=== PATIENT | male | born 2000 | race Caucasian/White ===

== ENCOUNTER 2022-05-20 14:57 | Observation (INO) ==
[2022-05-20] MEDS ORDERED: ONDANSETRON INJ 2 MG/ML 2 ML VIAL IV STA ×2 (15:03→17:39)
[2022-05-20] MEDS ORDERED: PROMETHAZINE 6.25 MG/50.25 ML BAG IV STA (15:31)
[2022-05-20] MEDS ORDERED: SODIUM CHLORIDE 0.9% 1000ML 1,000 ML IV ONE (15:31)
[2022-05-20] MEDS ORDERED: FAMOTIDINE 20MG IV PUSH 20 MG/5 ML SYR IV STA (15:40)
[2022-05-20] MEDS ORDERED: ACETAMINOPHEN 1,000 MG/100 ML VIAL IV STA (15:40)
[2022-05-20] MEDS ORDERED: LACTATED RINGER'S 1,000 ML IV ONE (15:40)
[2022-05-20 15:43] LABS: Basophils # (auto) 0.03 K/uL (0-0.2); Basophils % (auto) 0.3 %; Hematocrit (blood only) 46.4 % (40.1-51.0); Hemoglobin 17.3 g/dl (14.0-18.0); Immature Granulocytes # (auto) 0.03 K/uL (0.00-0.02); Immature Granulocytes % (auto) 0.3 %; Lymphocytes # (auto) 2.03 K/uL (1.2-3.4); Lymphocytes % (auto) 19.1 %; Mean Corpuscular Hemoglobin 30.6 pg (25.0-34.0); Mean Corpuscular Hgb Conc 37.3 g/dL (32.0-36.0); Mean Platelet Volume 9.9 fL (9.4-12.4); Monocytes # (auto) 0.73 K/uL (0.24-0.82); Monocytes % (auto) 6.9 %; Neutrophils # (auto) 7.83 K/uL (1.4-6.5); Neutrophils % (auto) 73.4 %; Platelet Count 326 K/uL (130-400); RDW Coefficient of Variation 11.7 % (11.5-14.5); RDW Standard Deviation 34.5 fL (36.4-46.3); Red Blood Count 5.66 M/uL (4.63-6.08); White Blood Count 10.65 K/ul (4.8-10.8)
--- NOTE | 2022-05-20 15:46 | Emergency Department Note ---
Impression & Plan Acute dehydration, Vomiting, Diffuse abdominal pain, Cannabinoid hyperemesis syndrome ED Provider Note NAME: VARINDER QUINTERO AGE: 21 SEX: M : 2000 ARRIVES VIA: Walk-In INFORMANT: [Patient] ED PROVIDER(S): [Mark Lr MD] CHIEF COMPLAINT: Vomiting HISTORY OF PRESENT ILLNESS: The patient is a 21-year-old male who states that he has had 3 to 4 days of nausea and vomiting. This all started the morning after he quit smoking marijuana. He has been smoking marijuana heavily for the last few months. He has a history of cannabinoid hyperemesis syndrome diagnosed about a year ago, he was doing well and staying away from marijuana up until a few months ago. He is feeling similar to how he felt previously and believes he has the same syndrome again. He does not use any other drugs. He has not had diarrhea. He has had decreased urine output and persistent retching and nausea and vomiting. No fever, no cough or congestion. No sick contacts, no bad food eaten. REVIEW OF SYSTEMS: See HPI for pertinent positives and negatives. A total of ten systems were reviewed and were otherwise negative. PMHx/PSHx: See Below SOCIAL HISTORY: See Below. PHYSICAL EXAM: GENERAL: Patient is in no acute distress. HEENT: No acute trauma, normocephalic atraumatic, mucous membranes moist, no nasal congestion, no scleral icterus. NECK: No stridor, no adenopathy, no meningismus, trachea is midline. LUNGS: Clear to auscultation bilaterally, no wheeze, no rhonchi, breath sounds equal. HEART: Without murmurs gallops or rubs, regular rate and rhythm. ABDOMEN: Soft, mildly diffusely tender, no rebound, no peritonitis EXTREMITIES: No cyanosis or edema, full range of motion of all the joints without pain or difficulty, no signs for acute trauma. NEUROLOGIC: Oriented x 3, no acute motor or sensory deficits, no focal weakness. SKIN: No rash, no jaundice, no diaphoresis. DIFFERENTIAL DIAGNOSIS: Cannabinoid hyperemesis syndrome, dehydration, bowel obstruction, foodborne or viral illness, electrolyte balance, anemia, among others. EMERGENCY DEPARTMENT COURSE/PROCEDURES: MEDICAL DECISION MAKING: There is no leukocytosis or concerning anemia. There is a normal platelet count. Potassium was low at 3.2, likely from all the vomiting. CO2 was low, there was a anion gap of 20. I suspect his electrolyte abnormalities are all from dehydration. Bilirubin was elevated at 3.6, the remaining liver enzymes were unremarkable. Lipase was normal. Urinalysis showed 4+ ketones, no infection. COVID test returned negative. Abdominal series did not show bowel obstruction, pneumonia or free air. On exam, the patient was not toxic. He did not have peritonitis. He was not febrile. Patient received IV Tylenol, IV Pepcid, IV lactated Ringer's. He received IV Zofran and IV Phenergan. He received a second dose of IV Zofran as well as a second dose of IV Phenergan. He was given IV potassium. The patient is still complaining of nausea. I think he would benefit from a hospital stay, further IV hydration, further symptom control. I spoke with the patient and vocational case manager, I talked to the on-call hospitalist. The patient does appear to be suffering from cannabinoid hyperemesis syndrome. Past Med/Surg History Medical History Cannabis use disorder Family History Other Coronary heart disease Social History Smoking Status: Never smoker Second Hand Exposure: No; Do You Dip or Chew Tobacco: No; Hx Alcohol Use: No Hx Substance Use: Yes Last Used Substance: Days (ago) Last Used Substance Other:: 2 days ago Preferred Language: Bangladeshi Communication Ability: Effective Van Driver Required: No Beliefs That Will Affect Care: None Current Living Situation: Alone Current Living Situation Comment: [employer] student lives in apartment with friends current occupational status: student Other Information That Helps Us Care for You: No Feels Safe at Home: Yes Safety Concerns: Feels Safe At This Time Assistive Devices: None Allergies Allergies Allergy/AdvReac Type Severity Reaction Status Date / Time penicillin G Allergy Mild Hives Verified 05/20/22 19:17 Home Meds Home Medications Medication Instructions Recorded Confirmed acetaminophen 500 mg tablet 1,000 mg PO QID PRN Pain 05/20/22 05/20/22 (Tylenol Extra Strength) cholecalciferol (vitamin D3) 25 25 mcg PO .2-3XSWEEK 05/20/22 05/20/22 mcg (1,000 unit) tablet (Vitamin D3) ondansetron HCl 4 mg tablet 4 mg PO Q8 PRN nausea & vomiting 05/20/22 05/20/22 Results & Data (ED) Vital Signs Vital Signs - 24 hr 05/20/22 15:00 05/20/22 15:58 05/20/22 17:00 Temperature 36.7 C Temperature Source Temporal Artery Scan Pulse Rate 111 H Pulse Rate [Finger] 89 112 H Respiratory Rate 20 20 18 Respiratory Effort / Characteristics Respiratory Depth Blood Pressure 142/100 H Blood Pressure [Right Arm] 124/93 118/54 L Blood Pressure Mean 114 Blood Pressure Mean [Right Arm] 103 75 Blood Pressure Position Sitting Blood Pressure Position [Right Arm] Pulse Oximetry 95 96 98 Oxygen Delivery Method Room Air Sepsis Recent Fever Within 48 Hours No Sepsis New/Unexplained Change in Mental Status No Sepsis Action Taken by Nursing No Action Required 05/20/22 19:32 Temperature Temperature Source Pulse Rate Pulse Rate [Finger] 86 Respiratory Rate Respiratory Effort / Characteristics Non-Labored Spontaneous Respiratory Depth Normal Blood Pressure Blood Pressure [Right Arm] 100/63 Blood Pressure Mean Blood Pressure Mean [Right Arm] 75 Blood Pressure Position Blood Pressure Position [Right Arm] Lying Pulse Oximetry 97 Oxygen Delivery Method Room Air Sepsis Recent Fever Within 48 Hours Sepsis New/Unexplained Change in Mental Status Sepsis Action Taken by Detention Medications Current Medication List: was personally reviewed by me Laboratory Data Attestation: I reviewed the patient's lab results. Result diagrams: 05/20/22 15:10 05/20/22 15:10 Lab Results 05/20/22 05/20/22 05/20/22 Range/Units 15:10 15:10 18:44 WBC 10.65 (4.8-10.8) K/ul RBC 5.66 (4.63-6.08) M/uL Hgb 17.3 (14.0-18.0) g/dl Hct 46.4 (40.1-51.0) % MCV 82.0 (80.0-100.0) fL MCH 30.6 (25.0-34.0) pg MCHC 37.3 H (32.0-36.0) g/dL RDW Std Deviation 34.5 L (36.4-46.3) fL RDW Coeff of Hallie 11.7 (11.5-14.5) % Plt Count 326 (130-400) K/uL MPV 9.9 (9.4-12.4) fL Immature Gran % (Auto) 0.3 % Neut % (Auto) 73.4 % Lymph % (Auto) 19.1 % [place] % (Auto) 6.9 % Eos % (Auto) 0.0 % Baso % (Auto) 0.3 % Neut # (Auto) 7.83 H (1.4-6.5) K/uL Lymph # (Auto) 2.03 (1.2-3.4) K/uL [place] # (Auto) 0.73 (0.24-0.82) K/uL Eos # (Auto) 0.00 (0-0.50) K/uL Baso # (Auto) 0.03 (0-0.2) K/uL Immature Gran # (Auto) 0.03 H (0.00-0.02) K/uL Sodium 136 (136-145) mmol/L Potassium 3.2 L (3.5-5.1) mmol/L Chloride 101 (98-107) mmol/L Carbon Dioxide 15 L (21-32) mmol/L Anion Gap 20 H (3-11) BUN 12 (6-23) mg/dl Creatinine 0.92 (0.6-1.4) mg/dl Est Cr Clr Drug Dosing 113.6 ml/min Est GFR ( Amer) 138.3 ml/min Est GFR (Non-Af Amer) 119.3 ml/min BUN/Creatinine Ratio 13.0 (10-20) Glucose 120 H (70-99(Fasting)) mg/dl Calcium 10.3 H (8.5-10.1) mg/dl Magnesium 1.7 (1.7-2.4) mg/dl Total Bilirubin 3.6 H (0.2-1.0) mg/dl AST 25 (13-39) U/L ALT 45 (7-52) U/L Alkaline Phosphatase 67 (34-104) U/L Total Protein 8.5 H (6.0-8.3) gm/dl Albumin 5.4 H (3.4-5.0) gm/dl Globulin 3.1 (2.5-4.0) gm/dl Albumin/Globulin Ratio 1.7 (0.9-2) Lipase 18 (11-82) U/L Urine Color Yellow Urine Appearance Clear (Clear) Urine pH 5.5 (4.5-7.5) Ur Specific [place] 1.024 (1.000-1.030) Urine Protein Trace H (Negative) Urine Glucose (UA) Negative (Negative) Urine Ketones 4+ H (Negative) Urine Blood Negative (Negative) Urine Nitrite Negative (Negative) Urine Bilirubin Negative (Negative) Urine Urobilinogen Negative (Negative) Ur Leukocyte Esterase Negative (Negative) Urine WBC (Auto) 1-5 (0-5) /hpf Urine RBC (Auto) 0-4 (0-4) /hpf U Hyaline Cast (Auto) 1-5 (0-5) /lpf U Epithel Cells (Auto) 5-10 H (0-5) /lpf Urine Bacteria (Auto) Negative (Negative) SARS-CoV-2, RNA, NAAT (NEGATIVE) 05/20/22 Range/Units 18:44 WBC (4.8-10.8) K/ul RBC (4.63-6.08) M/uL Hgb (14.0-18.0) g/dl Hct (40.1-51.0) % MCV (80.0-100.0) fL MCH (25.0-34.0) pg MCHC (32.0-36.0) g/dL RDW Std Deviation (36.4-46.3) fL RDW Coeff of Hallie (11.5-14.5) % Plt Count (130-400) K/uL MPV (9.4-12.4) fL Immature Gran % (Auto) % Neut % (Auto) % Lymph % (Auto) % [place] % (Auto) % Eos % (Auto) % Baso % (Auto) % Neut # (Auto) (1.4-6.5) K/uL Lymph # (Auto) (1.2-3.4) K/uL [place] # (Auto) (0.24-0.82) K/uL Eos # (Auto) (0-0.50) K/uL Baso # (Auto) (0-0.2) K/uL Immature Gran # (Auto) (0.00-0.02) K/uL Sodium (136-145) mmol/L Potassium (3.5-5.1) mmol/L Chloride (98-107) mmol/L Carbon Dioxide (21-32) mmol/L Anion Gap (3-11) BUN (6-23) mg/dl Creatinine (0.6-1.4) mg/dl Est Cr Clr Drug Dosing ml/min Est GFR ( Amer) ml/min Est GFR (Non-Af Amer) ml/min BUN/Creatinine Ratio (10-20) Glucose (70-99(Fasting)) mg/dl Calcium (8.5-10.1) mg/dl Magnesium (1.7-2.4) mg/dl Total Bilirubin (0.2-1.0) mg/dl AST (13-39) U/L ALT (7-52) U/L Alkaline Phosphatase (34-104) U/L Total Protein (6.0-8.3) gm/dl Albumin (3.4-5.0) gm/dl Globulin (2.5-4.0) gm/dl Albumin/Globulin Ratio (0.9-2) Lipase (11-82) U/L Urine Color Urine Appearance (Clear) Urine pH (4.5-7.5) Ur Specific [place] (1.000-1.030) Urine Protein (Negative) Urine Glucose (UA) (Negative) Urine Ketones (Negative) Urine Blood (Negative) Urine Nitrite (Negative) Urine Bilirubin (Negative) Urine Urobilinogen (Negative) Ur Leukocyte Esterase (Negative) Urine WBC (Auto) (0-5) /hpf Urine RBC (Auto) (0-4) /hpf U Hyaline Cast (Auto) (0-5) /lpf U Epithel Cells (Auto) (0-5) /lpf Urine Bacteria (Auto) (Negative) SARS-CoV-2, RNA, NAAT NEGATIVE (NEGATIVE) Administered Medications Discontinued Medications Promethazine HCl (Phenergan) 6.25 mg in 50.25 mls @ 201 mls/hr IV NOW STA Stop: 05/20/22 15:45 Last Infusion: 05/20/22 15:54 Dose: 0 mls/hr Documented By: Admin: 05/20/22 15:43 Dose: 201 mls/hr Documented By: GRIS Sodium Chloride (Nss 1000ml) 1,000 mls @ 999 mls/hr IV .Q1H1M ONE Stop: 05/20/22 16:31 Last Infusion: 05/20/22 16:48 Dose: 0 mls/hr Documented By: Admin: 05/20/22 15:43 Dose: 999 mls/hr Documented By: GRIS Acetaminophen (Ofirmev) 1,000 mg in 100 mls @ 400 mls/hr IV NOW STA Stop: 05/20/22 15:54 Last Infusion: 05/20/22 16:48 Dose: 0 mls/hr Documented By: Admin: 05/20/22 15:54 Dose: 400 mls/hr Documented By: GRIS Famotidine (Pepcid 20mg Iv Push) 20 mg in 5 mls @ 2.5 mls/min IV NOW STA Stop: 05/20/22 15:41 Last Admin: 05/20/22 15:54 Dose: 2.5 mls/min Documented By: GRIS Lactated Ringer's (Lr) 1,000 mls @ 999 mls/hr IV .Q1H1M ONE Stop: 05/20/22 16:40 Last Infusion: 05/20/22 18:49 Dose: 0 mls/hr Documented By: Admin: 05/20/22 17:17 Dose: 999 mls/hr Documented By: GRIS Potassium Chloride (K Bony / Wtr) 10 meq in 100 mls @ 100 mls/hr IV ONE ONE; Protocol Stop: 05/20/22 17:22 Last Infusion: 05/20/22 18:49 Dose: 0 mls/hr Documented By: Admin: 05/20/22 17:17 Dose: 100 mls/hr Documented By: GRIS Promethazine HCl (Phenergan) 12.5 mg in 50.5 mls @ 202 mls/hr IV NOW STA Stop: 05/20/22 17:53 Last Infusion: 05/20/22 18:23 Dose: 0 mls/hr Documented By: Admin: 05/20/22 17:51 Dose: 202 mls/hr Documented By: GRIS Ondansetron HCl (Ondansetron Inj 2 Mg/Ml 2 Ml Vial) 4 mg IV NOW STA Stop: 05/20/22 15:04 Last Admin: 05/20/22 15:13 Dose: 4 mg Documented By: SALVADOR Ondansetron HCl (Ondansetron Inj 2 Mg/Ml 2 Ml Vial) 4 mg IV NOW STA Stop: 05/20/22 17:40 Last Admin: 05/20/22 17:50 Dose: 4 mg Documented By: AY Imaging Data Radiologist's Impression: Chest/Abdomen X-ray 05/20/22 15:40 CHEST AND ABDOMEN 2 VIEWS HISTORY: Nausea. Vomiting. COMPARISON: None. FINDINGS: The lungs are clear. The cardiomediastinal silhouette is within normal limits. There is no pneumoperitoneum or pneumatosis. The bowel gas pattern is unremarkable. No evidence for bowel obstruction. No pathologic calcifications. IMPRESSION: No acute cardiopulmonary process. No evidence for bowel obstruction. ACT 112: Negative or not required by law. Electronically signed by: Abdifatah Jay M.D. 05/20/2022 5:09 PM Discharge Plan Visit Data Chief Complaint: Vomiting Stated Complaint: VOMITING ED Provider: Mark Lr Discharge Problem: Acute dehydration, Vomiting, Diffuse abdominal pain, Cannabinoid hyperemesis syndrome Patient Disposition: Admitted As Inpatient Condition: Fair Forms Stand Alone Forms: [facility] Prescriptions Prescriptions: No Action ondansetron HCl 4 mg tablet 4 mg PO Q8 PRN (Reason: nausea & vomiting) acetaminophen [Tylenol Extra Strength] 500 mg Tablet 1,000 mg PO QID PRN (Reason: Pain) cholecalciferol (vitamin D3) [Vitamin D3] 25 mcg (1,000 unit) Tablet 25 mcg PO .2-3XSWEEK Referrals Referrals: PCP,NO [Primary Care Provider] -
[2022-05-20 16:10] LABS: Albumin Globulin Ratio 1.7 (0.9-2); Albumin Level 5.4 gm/dl (3.4-5.0); Bilirubin,Total 3.6 mg/dl (0.2-1.0); Calcium 10.3 mg/dl (8.5-10.1); Creatinine Clr Calc Pharmacy 113.6 ml/min; Est GFR (African American) 138.3 ml/min; Est GFR (Non-African American) 119.3 ml/min; Globulin 3.1 gm/dl (2.5-4.0); Magnesium 1.7 mg/dl (1.7-2.4); Potassium 3.2 mmol/L (3.5-5.1); Total Protein 8.5 gm/dl (6.0-8.3)
[2022-05-20] MEDS ORDERED: POTASSIUM CHLORIDE / WTR 10 MEQ/100 ML PLCT IV ONE (16:23)
--- NOTE | 2022-05-20 17:11 | XRay Report ---
CHEST AND ABDOMEN 2 VIEWS HISTORY: Nausea. Vomiting. COMPARISON: None. FINDINGS: The lungs are clear. The cardiomediastinal silhouette is within normal limits. There is no pneumoperitoneum or pneumatosis. The bowel gas pattern is unremarkable. No evidence for b owel obstruction. No pathologic calcifications. IMPRESSION: No acute cardiopulmonary process. No evidence for bowel obstruction. ACT 112: Negative or not required by law. Electronically signed by: Abdifatah Jay M.D. 05/20/2022 5:09 PM
[2022-05-20] MEDS ORDERED: PROMETHAZINE 12.5 MG/50.5 ML BAG IV STA (17:39)
[2022-05-20 18:56] LABS: Appearance Urine Clear (Clear); Bacteria Urine Automated Negative (Negative); Bilirubin Urine Negative (Negative); Blood Urine Negative (Negative); Color Urine Yellow; Glucose Urine UA Negative (Negative); Ketones Urine 4+ (Negative); Leukocyte Esterase Urine Negative (Negative); Nitrite Urine Negative (Negative); Protein Urine Trace (Negative); RBC Urine Automated 0-4 /hpf (0-4); Specific Gravity Urine 1.024 (1.000-1.030); Urobilinogen Urine Negative (Negative); pH Urine 5.5 (4.5-7.5)
--- NOTE | 2022-05-20 19:41 | History & Physical Report ---
Date of Service May 20, 2022 Assessment & Plan (1) Nausea & vomiting: (2) Cannabis hyperemesis syndrome concurrent with and due to cannabis abuse: (3) Hypokalemia: (4) Epigastric abdominal pain: Plan Severe nausea and vomiting with epigastric pain: -likely 2/2 Cannabis hyperemesis syndrome -pt appeared well -IV Zofran prn for nausea -since pt noticed blood in the vomit + hx of gastritis will do protonix 40mg IV BID --- discharge on oral Protonix --- clear liquid diet and advance as he tolerate --- maintenance IVF fluid: 100 cc/hr --- trend CBC -T bili is elevated but not suspecting gallbladder pathology ---- repeat CMP ---- if abd pain worse then consider CT abd -Chest/abd xray: unremarkable -HypoK+: repleted ---- trend BMP Diet: Clear liquid diet DVT PPx: SCD Code Status: FULL CODE Emergency Contact: MotherJessica [phone] History of Present Illness Chief Complaint: n/v Primary Care Provider: NO PCP Pt is a 21 y/o M with prior hx of gastritis from Cannabis hyperemesis syndrome and heavy cannabis use came into the ER with severe N/V for 1 day. Per pt he uses eighth of cannabis (3.5 grams) daily. He was trying to quit therefore stop using it yesterday & the symptoms started right after. Does have prior hx of Cannabis hyperemesis syndrome which required EGD (showed gastritis) 1 year ago He denied other drug use or hx of GI bleed but did see some bright red blood on the vomit today morning. Allergies Allergy/AdvReac Type Severity Reaction Status Date / Time penicillin G Allergy Mild Hives Verified 05/20/22 19:17 Past Med/Surg History Medical History Cannabis use disorder Family History Other Coronary heart disease Social History Smoking Status: Never smoker Second Hand Exposure: No; Do You Dip or Chew Tobacco: No; Hx Alcohol Use: No Hx Substance Use: Yes Last Used Substance: Days (ago) Last Used Substance Other:: 2 days ago Preferred Language: Mongolian Communication Ability: Effective Broach Grinder Required: No Beliefs That Will Affect Care: None Current Living Situation: Alone Current Living Situation Comment: [employer] student lives in apartment with friends current occupational status: student Other Information That Helps Us Care for You: No Feels Safe at Home: Yes Safety Concerns: Feels Safe At This Time Assistive Devices: None Review of Systems Review of Systems: At least 10 Review of systems were reviewed and all negative except as indicated in HPI Physical Exam Physical Exam: General:. NAD, well developed, well nourished, average body habitus HEENT:. Normocephalic and atraumatic, Normal Conjunctiva, EOMI, Sclera is non- icteric Lungs:. No signs of respiratory distress, CTA, no wheezing or crackles Heart:. Normal S1, S2, no murmur Abdominal:.mild discomfort to palpation of the epigastric area, ND, Soft, normal BS MSK:. No deformities of UE and LE, No leg edema Skin:. no rash or open wound Psych:. AAOx3, normal affect Results & Data Results & Data ([facility]) Vital Signs (Past 12 Hours) Vital Signs Temp Pulse Pulse Resp BP BP Pulse Ox 05/20/22 17:00 112 H 18 118/54 L 98 05/20/22 15:58 89 20 124/93 96 05/20/22 15:00 36.7 C 111 H 20 142/100 H 95 O2 Del Method 05/20/22 17:00 05/20/22 15:58 05/20/22 15:00 Room Air Laboratory Results Short CBC 05/20/22 Range/Units 15:10 WBC 10.65 (4.8-10.8) K/ul Hgb 17.3 (14.0-18.0) g/dl Hct 46.4 (40.1-51.0) % Plt Count 326 (130-400) K/uL BMP 05/20/22 15:10 Sodium 136 Potassium 3.2 L Chloride 101 Carbon Dioxide 15 L BUN 12 Creatinine 0.92 Glucose 120 H Calcium 10.3 H Liver Function 05/20/22 Range/Units 15:10 Total Bilirubin 3.6 H (0.2-1.0) mg/dl AST 25 (13-39) U/L ALT 45 (7-52) U/L Alkaline Phosphatase 67 (34-104) U/L Albumin 5.4 H (3.4-5.0) gm/dl Urine 05/20/22 Range/Units 18:44 Urine Color Yellow Urine Appearance Clear (Clear) Urine pH 5.5 (4.5-7.5) Ur Specific [place] 1.024 (1.000-1.030) Urine Protein Trace H (Negative) Urine Glucose (UA) Negative (Negative) Diagnostic Findings Chest/Abdomen X-ray 05/20/22 15:40 CHEST AND ABDOMEN 2 VIEWS HISTORY: Nausea. Vomiting. COMPARISON: None. FINDINGS: The lungs are clear. The cardiomediastinal silhouette is within normal limits. There is no pneumoperitoneum or pneumatosis. The bowel gas pattern is unremarkable. No evidence for bowel obstruction. No pathologic calcifications. IMPRESSION: No acute cardiopulmonary process. No evidence for bowel obstruction. ACT 112: Negative or not required by law. Electronically signed by: Abdifatah Jay M.D. 05/20/2022 5:09 PM Code Status & VTE Plan VTE Prophylaxis Plan VTE Prophylaxis will be ordered: Yes
[2022-05-20] MEDS: SODIUM CHLORIDE 0.9% 1000ML 1,000 ML IV SCH (21:46)
[2022-05-20] MEDS: PANTOprazole 40 MG in SYRINGE 0 ML IV SCH (21:46)
[2022-05-21 07:08] LABS: Albumin Globulin Ratio 1.8 (0.9-2); Albumin Level 4.2 gm/dl (3.4-5.0); BUN Creatinine Ratio 12.9 (10-20); Bilirubin,Total 2.8 mg/dl (0.2-1.0); Calcium 8.7 mg/dl (8.5-10.1); Creatinine Clr Calc Pharmacy 130.8 ml/min; Est GFR (African American) 136.5 ml/min; Est GFR (Non-African American) 117.8 ml/min; Globulin 2.3 gm/dl (2.5-4.0); Magnesium 1.8 mg/dl (1.7-2.4); Potassium 3.3 mmol/L (3.5-5.1); Total Protein 6.5 gm/dl (6.0-8.3)
[2022-05-21 07:09] LABS: Basophils # (auto) 0.04 K/uL (0-0.2); Basophils % (auto) 0.6 %; Eosinophils # (auto) 0.07 K/uL (0-0.50); Immature Granulocytes # (auto) 0.02 K/uL (0.00-0.02); Immature Granulocytes % (auto) 0.3 %; Lymphocytes # (auto) 2.09 K/uL (1.2-3.4); Lymphocytes % (auto) 28.8 %; Mean Corpuscular Hemoglobin 30.6 pg (25.0-34.0); Mean Corpuscular Hgb Conc 35.9 g/dL (32.0-36.0); Mean Corpuscular Volume 85.3 fL (80.0-100.0); Monocytes # (auto) 0.75 K/uL (0.24-0.82); Monocytes % (auto) 10.3 %; Neutrophils # (auto) 4.29 K/uL (1.4-6.5); Platelet Count 208 K/uL (130-400); RDW Coefficient of Variation 12.2 % (11.5-14.5); RDW Standard Deviation 37.2 fL (36.4-46.3); Red Blood Count 4.57 M/uL (4.63-6.08); White Blood Count 7.26 K/ul (4.8-10.8)
[2022-05-21] MEDS: PANTOprazole 40 MG in SYRINGE 0 ML IV SCH ×2 (07:13→20:42)
[2022-05-21] MEDS: SODIUM CHLORIDE 0.9% 1000ML 1,000 ML IV SCH ×2 (07:13→17:32)
--- NOTE | 2022-05-21 07:59 | Hospitalist Progress Note ---
Date of Service May 21, 2022 Assessment & Plan (1) Nausea & vomiting: (2) Cannabis hyperemesis syndrome concurrent with and due to cannabis abuse: (3) Hypokalemia: (4) Epigastric abdominal pain: Plan Severe nausea and vomiting with epigastric pain: -likely 2/2 Cannabis hyperemesis syndrome -pt appeared well -IV Zofran prn for nausea -since pt noticed blood in the vomit + hx of gastritis, started on protonix 40mg IV BID --- discharge on oral Protonix --- clear liquid diet initially, will advance now --- maintenance IVF fluid: 100 cc/hr --- trend CBC -T bili is elevated but not suspecting gallbladder pathology ---- repeat CMP - decreased 3.6 -> 2.8 ---- if abd pain worse then consider CT abd -Chest/abd xray: unremarkable -HypoK+: replete and monitor ---- trend BMP Diet: advance as tolerated DVT PPx: SCD Code Status: FULL CODE Emergency Contact: Larisa [phone] Admission and Anticipated Discharge Date Admission Date: May 20, 2022 Subjective Pt seen in follow up of n/v Denies any emesis today Feeling better overall No fever, chills, chest pain, shortness of breath, abd. pain, diarrhea or constipation Will advance diet Review of Systems Review of Systems: All systems reviewed & are unremarkable except as noted in Subjective Physical Exam Physical Exam: General:.NAD, well developed, well nourished, average body habitus HEENT:.Normocephalic and atraumatic, Normal Conjunctiva, EOMI, Sclera is non- icteric Lungs:.No signs of respiratory distress, CTA, no wheezing or crackles Heart:.Normal S1, S2, no murmur Abdominal: minimal discomfort to palpation of the epigastric area,ND, Soft, normal BS MSK:.No deformities of UE and LE, No leg edema Skin:.no rash or open wound Psych:.AAOx3, normal affect Results & Data Results & Data ([facility]) Vital Signs (Past 12 Hours) Vital Signs Temp Pulse Pulse Resp BP BP Pulse Ox 05/21/22 07:31 36.8 C 76 16 100/64 97 05/20/22 21:41 36.8 C 94 H 16 137/81 95 05/20/22 21:25 05/20/22 21:15 98 H 18 134/88 99 O2 Del Method 05/21/22 07:31 Room Air 05/20/22 21:41 Room Air 05/20/22 21:25 Room Air 05/20/22 21:15 Room Air Laboratory Results 05/21/22 05/21/22 05/20/22 Range/Units 05:22 05:22 18:44 WBC 7.26 (4.8-10.8) K/ul RBC 4.57 L (4.63-6.08) M/uL Hgb 14.0 D (14.0-18.0) g/dl Hct 39.0 L (40.1-51.0) % MCV 85.3 (80.0-100.0) fL MCH 30.6 (25.0-34.0) pg MCHC 35.9 (32.0-36.0) g/dL RDW Std Deviation 37.2 (36.4-46.3) fL RDW Coeff of Hallie 12.2 (11.5-14.5) % Plt Count 208 (130-400) K/uL MPV 10.0 (9.4-12.4) fL Immature Gran % (Auto) 0.3 % Neut % (Auto) 59.0 % Lymph % (Auto) 28.8 % Wilkes % (Auto) 10.3 % Eos % (Auto) 1.0 % Baso % (Auto) 0.6 % Neut # (Auto) 4.29 (1.4-6.5) K/uL Lymph # (Auto) 2.09 (1.2-3.4) K/uL Wilkes # (Auto) 0.75 (0.24-0.82) K/uL Eos # (Auto) 0.07 (0-0.50) K/uL Baso # (Auto) 0.04 (0-0.2) K/uL Immature Gran # (Auto) 0.02 (0.00-0.02) K/uL Sodium 138 (136-145) mmol/L Potassium 3.3 L (3.5-5.1) mmol/L Chloride 105 (98-107) mmol/L Carbon Dioxide 27 (21-32) mmol/L Anion Gap 6 (3-11) BUN 12 (6-23) mg/dl Creatinine 0.93 (0.6-1.4) mg/dl Est Cr Clr Drug Dosing 130.8 ml/min Est GFR ( Amer) 136.5 ml/min Est GFR (Non-Af Amer) 117.8 ml/min BUN/Creatinine Ratio 12.9 (10-20) Glucose 84 (70-99(Fasting)) mg/dl Calcium 8.7 (8.5-10.1) mg/dl Magnesium 1.8 (1.7-2.4) mg/dl Total Bilirubin 2.8 H (0.2-1.0) mg/dl AST 19 (13-39) U/L ALT 30 (7-52) U/L Alkaline Phosphatase 49 (34-104) U/L Total Protein 6.5 D (6.0-8.3) gm/dl Albumin 4.2 (3.4-5.0) gm/dl Globulin 2.3 L (2.5-4.0) gm/dl Albumin/Globulin Ratio 1.8 (0.9-2) Lipase (11-82) U/L Urine Color Urine Appearance (Clear) Urine pH (4.5-7.5) Ur Specific [place] (1.000-1.030) Urine Protein (Negative) Urine Glucose (UA) (Negative) Urine Ketones (Negative) Urine Blood (Negative) Urine Nitrite (Negative) Urine Bilirubin (Negative) Urine Urobilinogen (Negative) Ur Leukocyte Esterase (Negative) Urine WBC (Auto) (0-5) /hpf Urine RBC (Auto) (0-4) /hpf U Hyaline Cast (Auto) (0-5) /lpf U Epithel Cells (Auto) (0-5) /lpf Urine Bacteria (Auto) (Negative) SARS-CoV-2, RNA, NAAT NEGATIVE (NEGATIVE) 05/20/22 05/20/22 05/20/22 Range/Units 18:44 15:10 15:10 WBC 10.65 (4.8-10.8) K/ul RBC 5.66 (4.63-6.08) M/uL Hgb 17.3 (14.0-18.0) g/dl Hct 46.4 (40.1-51.0) % MCV 82.0 (80.0-100.0) fL MCH 30.6 (25.0-34.0) pg MCHC 37.3 H (32.0-36.0) g/dL RDW Std Deviation 34.5 L (36.4-46.3) fL RDW Coeff of Hallie 11.7 (11.5-14.5) % Plt Count 326 (130-400) K/uL MPV 9.9 (9.4-12.4) fL Immature Gran % (Auto) 0.3 % Neut % (Auto) 73.4 % Lymph % (Auto) 19.1 % Wilkes % (Auto) 6.9 % Eos % (Auto) 0.0 % Baso % (Auto) 0.3 % Neut # (Auto) 7.83 H (1.4-6.5) K/uL Lymph # (Auto) 2.03 (1.2-3.4) K/uL Wilkes # (Auto) 0.73 (0.24-0.82) K/uL Eos # (Auto) 0.00 (0-0.50) K/uL Baso # (Auto) 0.03 (0-0.2) K/uL Immature Gran # (Auto) 0.03 H (0.00-0.02) K/uL Sodium 136 (136-145) mmol/L Potassium 3.2 L (3.5-5.1) mmol/L Chloride 101 (98-107) mmol/L Carbon Dioxide 15 L (21-32) mmol/L Anion Gap 20 H (3-11) BUN 12 (6-23) mg/dl Creatinine 0.92 (0.6-1.4) mg/dl Est Cr Clr Drug Dosing 113.6 ml/min Est GFR ( Amer) 138.3 ml/min Est GFR (Non-Af Amer) 119.3 ml/min BUN/Creatinine Ratio 13.0 (10-20) Glucose 120 H (70-99(Fasting)) mg/dl Calcium 10.3 H (8.5-10.1) mg/dl Magnesium 1.7 (1.7-2.4) mg/dl Total Bilirubin 3.6 H (0.2-1.0) mg/dl AST 25 (13-39) U/L ALT 45 (7-52) U/L Alkaline Phosphatase 67 (34-104) U/L Total Protein 8.5 H (6.0-8.3) gm/dl Albumin 5.4 H (3.4-5.0) gm/dl Globulin 3.1 (2.5-4.0) gm/dl Albumin/Globulin Ratio 1.7 (0.9-2) Lipase 18 (11-82) U/L Urine Color Yellow Urine Appearance Clear (Clear) Urine pH 5.5 (4.5-7.5) Ur Specific [place] 1.024 (1.000-1.030) Urine Protein Trace H (Negative) Urine Glucose (UA) Negative (Negative) Urine Ketones 4+ H (Negative) Urine Blood Negative (Negative) Urine Nitrite Negative (Negative) Urine Bilirubin Negative (Negative) Urine Urobilinogen Negative (Negative) Ur Leukocyte Esterase Negative (Negative) Urine WBC (Auto) 1-5 (0-5) /hpf Urine RBC (Auto) 0-4 (0-4) /hpf U Hyaline Cast (Auto) 1-5 (0-5) /lpf U Epithel Cells (Auto) 5-10 H (0-5) /lpf Urine Bacteria (Auto) Negative (Negative) SARS-CoV-2, RNA, NAAT (NEGATIVE) Medications Administered Current Inpatient Medications Sodium Chloride (Nss 1000ml) 1,000 mls @ 100 mls/hr IV .Q10H ELBERT Stop: 06/19/22 21:24 Last Admin: 05/21/22 07:13 Dose: 100 mls/hr Pantoprazole Sodium 40 mg/ (Syringe) 10 mls @ 5 mls/min IV BID ELBERT Stop: 06/19/22 21:24 Last Admin: 05/21/22 07:13 Dose: 5 mls/min Potassium Chloride (K Bony / Wtr) 10 meq in 100 mls @ 100 mls/hr IV Q1H ELBERT Stop: 05/21/22 10:59 Ondansetron HCl (Ondansetron Inj 2 Mg/Ml 2 Ml Vial) 4 mg IV Q4H PRN PRN Reason: Nausea Stop: 06/19/22 21:24
[2022-05-21] MEDS: POTASSIUM CHLORIDE / WTR 10 MEQ/100 ML PLCT IV SCH ×3 (08:30→10:24)
[2022-05-21] MEDS: ONDANSETRON INJ 2 MG/ML 2 ML VIAL IV PRN (23:18)
[2022-05-22] MEDS ORDERED: COUGH DROP (SUGAR FREE) LOZ 24 LOZ/1 BOX BUCCAL PRN (00:29)
[2022-05-22] MEDS: ONDANSETRON INJ 2 MG/ML 2 ML VIAL IV PRN ×3 (03:18→15:26)
[2022-05-22] MEDS: SODIUM CHLORIDE 0.9% 1000ML 1,000 ML IV SCH (03:19)
[2022-05-22 07:41] LABS: Hematocrit (blood only) 39.2 % (40.1-51.0); Mean Corpuscular Hemoglobin 30.4 pg (25.0-34.0); Mean Corpuscular Hgb Conc 35.7 g/dL (32.0-36.0); Mean Corpuscular Volume 85.2 fL (80.0-100.0); Mean Platelet Volume 9.9 fL (9.4-12.4); Platelet Count 194 K/uL (130-400); RDW Coefficient of Variation 11.8 % (11.5-14.5); White Blood Count 9.03 K/ul (4.8-10.8)
[2022-05-22 08:09] LABS: Alanine Aminotransferase 25 U/L (7-52); Albumin Globulin Ratio 1.8 (0.9-2); Albumin Level 4.1 gm/dl (3.4-5.0); Alkaline Phosphatase 49 U/L (34-104); Anion Gap 7 (3-11); Aspartate Aminotransferase 16 U/L (13-39); BUN Creatinine Ratio 8.7 (10-20); Bilirubin,Total 2.2 mg/dl (0.2-1.0); Blood Urea Nitrogen 6 mg/dl (6-23); Calcium 8.8 mg/dl (8.5-10.1); Carbon Dioxide 27 mmol/L (21-32); Chloride 106 mmol/L (98-107); Creatinine Clr Calc Pharmacy 176.3 ml/min; Est GFR (African American) > 150.0 ml/min; Est GFR (Non-African American) 136.7 ml/min; Globulin 2.3 gm/dl (2.5-4.0); Glucose 89 mg/dl (70-99(Fasting)); Magnesium 1.7 mg/dl (1.7-2.4); Phosphorus 2.7 mg/dl (2.5-4.9); Potassium 3.1 mmol/L (3.5-5.1); Sodium 140 mmol/L (136-145); Total Protein 6.4 gm/dl (6.0-8.3)
[2022-05-22] MEDS ORDERED: POTASSIUM CHLORIDE CRTAB 20 MEQ TABCR PO STA (08:18)
--- NOTE | 2022-05-22 08:21 | Hospitalist Progress Note ---
Date of Service May 22, 2022 Assessment & Plan (1) Nausea & vomiting: (2) Cannabis hyperemesis syndrome concurrent with and due to cannabis abuse: (3) Hypokalemia: (4) Epigastric abdominal pain: Plan Severe nausea and vomiting with epigastric pain: -likely 2/2 Cannabis hyperemesis syndrome -pt appeared well -IV Zofran prn for nausea -since pt noticed blood in the vomit + hx of gastritis, started on protonix 40mg IV BID --- discharge on oral Protonix --- diet advanced and tolerated, had some nausea at night though --- maintenance IVF fluid: 100 cc/hr --- trend CBC -T bili is elevated but not suspecting gallbladder pathology ---- repeated CMP - decreased 3.6 -> 2.8 ->2.2 ---- if abd pain worse then consider CT abd -Chest/abd xray: unremarkable -HypoK+: replete and monitor ---- trend BMP Diet: advance as tolerated DVT PPx: SCD Code Status: FULL CODE Emergency Contact: Larisa [phone] Admission and Anticipated Discharge Date Admission Date: May 20, 2022 Subjective Pt seen in follow up of n/v Tolerated diet yesterday, then had some nausea last night No fever, chills, chest pain, shortness of breath, abd. pain, diarrhea or constipation Possibly will DC later today Review of Systems Review of Systems: All systems reviewed & are unremarkable except as noted in Subjective Physical Exam Physical Exam: General:.NAD, well developed, well nourished, average body habitus HEENT:.Normocephalic and atraumatic, Normal Conjunctiva, EOMI, Sclera is non- icteric Lungs:.No signs of respiratory distress, CTA, no wheezing or crackles Heart:.Normal S1, S2, no murmur Abdominal: minimal discomfort to palpation of the epigastric area,ND, Soft, normal BS MSK:.No deformities of UE and LE, No leg edema Skin:.no rash or open wound Psych:.AAOx3, normal affect Results & Data Results & Data ([facility]) Vital Signs (Past 12 Hours) Vital Signs Temp Pulse Pulse Resp BP Pulse Ox O2 Del Method 05/22/22 07:07 36.8 C 85 18 118/79 98 Room Air 11/13/22 21:38 37.1 C 73 16 118/77 97 Room Air Laboratory Results 05/22/22 05/22/22 05/21/22 Range/Units 06:44 06:44 05:22 WBC 9.03 (4.8-10.8) K/ul RBC 4.60 L (4.63-6.08) M/uL Hgb 14.0 (14.0-18.0) g/dl Hct 39.2 L (40.1-51.0) % MCV 85.2 (80.0-100.0) fL MCH 30.4 (25.0-34.0) pg MCHC 35.7 (32.0-36.0) g/dL RDW Std Deviation 36.0 L (36.4-46.3) fL RDW Coeff of Hallie 11.8 (11.5-14.5) % Plt Count 194 (130-400) K/uL MPV 9.9 (9.4-12.4) fL Sodium 140 (136-145) mmol/L Potassium 3.1 L (3.5-5.1) mmol/L Chloride 106 (98-107) mmol/L Carbon Dioxide 27 (21-32) mmol/L Anion Gap 7 (3-11) BUN 6 (6-23) mg/dl Creatinine 0.69 (0.6-1.4) mg/dl Est Cr Clr Drug Dosing 176.3 ml/min Est GFR ( Amer) > 150.0 ml/min Est GFR (Non-Af Amer) 136.7 ml/min BUN/Creatinine Ratio 8.7 L (10-20) Glucose 89 (70-99(Fasting)) mg/dl Calcium 8.8 (8.5-10.1) mg/dl Phosphorus 2.7 2.7 (2.5-4.9) mg/dl Magnesium 1.7 (1.7-2.4) mg/dl Total Bilirubin 2.2 H (0.2-1.0) mg/dl AST 16 (13-39) U/L ALT 25 (7-52) U/L Alkaline Phosphatase 49 (34-104) U/L Total Protein 6.4 (6.0-8.3) gm/dl Albumin 4.1 (3.4-5.0) gm/dl Globulin 2.3 L (2.5-4.0) gm/dl Albumin/Globulin Ratio 1.8 (0.9-2) Medications Administered Current Inpatient Medications Sodium Chloride (Nss 1000ml) 1,000 mls @ 100 mls/hr IV .Q10H ELBERT Stop: 06/19/22 21:24 Last Admin: 05/22/22 03:19 Dose: 100 mls/hr Pantoprazole Sodium 40 mg/ (Syringe) 10 mls @ 5 mls/min IV BID ELBERT Stop: 06/19/22 21:24 Last Admin: 05/21/22 20:42 Dose: 5 mls/min Magnesium Oxide (Magnesium Oxide 400 Mg Tab) 400 mg PO QAM ELBERT Stop: 06/21/22 08:59 Menthol (Cough Drop (Sugar Free) Amanda 24 Amanda/1 Box) 1 amanda BUCCAL NOW PRN PRN Reason: Sore Throat Stop: 06/21/22 00:28 Ondansetron HCl (Ondansetron Inj 2 Mg/Ml 2 Ml Vial) 4 mg IV Q4H PRN PRN Reason: Nausea Stop: 06/19/22 21:24 Last Admin: 05/22/22 03:18 Dose: 4 mg
[2022-05-22] MEDS: PANTOprazole 40 MG in SYRINGE 0 ML IV SCH (08:59)
[2022-05-22] MEDS ORDERED: MAGNESIUM OXIDE 400 MG TAB PO SCH (09:00)
[2022-05-22] MEDS: POTASSIUM CHLORIDE / WTR 10 MEQ/100 ML PLCT IV SCH ×2 (10:23→11:52)
--- NOTE | 2022-05-22 14:52 | Discharge Summary ---
Date of Service May 22, 2022 Admission HPI Per Admitting Provider Pt is a 21 y/o M with prior hx of gastritis from Cannabis hyperemesis syndrome and heavy cannabis use came into the ER with severe N/V for 1 day. Per pt he uses eighth of cannabis (3.5 grams) daily. He was trying to quit therefore stop using it yesterday & the symptoms started right after. Does have prior hx of Cannabis hyperemesis syndrome which required EGD (showed gastritis) 1 year ago He denied other drug use or hx of GI bleed but did see some bright red blood on the vomit today morning. Admission Exam Per Admitting Provider General:.NAD, well developed, well nourished, average body habitus HEENT:.Normocephalic and atraumatic, Normal Conjunctiva, EOMI, Sclera is non- icteric Lungs:.No signs of respiratory distress, CTA, no wheezing or crackles Heart:.Normal S1, S2, no murmur Abdominal:.mild discomfort to palpation of the epigastric area,ND, Soft, normal BS MSK:.No deformities of UE and LE, No leg edema Skin:.no rash or open wound Psych:.AAOx3, normal affect Principal Diagnosis Cannabis hyperemesis syndrome Discharge Exam General:.NAD, well developed, well nourished, average body habitus HEENT:.Normocephalic and atraumatic, Normal Conjunctiva, EOMI, Sclera is non- icteric Lungs:.No signs of respiratory distress, CTA, no wheezing or crackles Heart:.Normal S1, S2, no murmur Abdominal: minimal discomfort to palpation of the epigastric area,ND, Soft, normal BS MSK:.No deformities of UE and LE, No leg edema Skin:.no rash or open wound Psych:.AAOx3, normal affect Discharge Data Allergies Allergy/AdvReac Type Severity Reaction Status Date / Time penicillin G Allergy Mild Hives Verified 05/20/22 19:17 Consultations 05/20/22 18:51 ED Decision to Admit Stat Hospital Course (1) Nausea & vomiting: (2) Cannabis hyperemesis syndrome concurrent with and due to cannabis abuse: (3) Hypokalemia: (4) Epigastric abdominal pain: Plan Severe nausea and vomiting with epigastric pain: -likely 2/2 Cannabis hyperemesis syndrome -pt appeared well -IV Zofran prn for nausea -since pt noticed blood in the vomit + hx of gastritis, started on protonix 40mg IV BID --- discharge on oral Protonix --- diet advanced and tolerated, had some nausea at night though --- maintenance IVF fluid: 100 cc/hr --- trend CBC -T bili is elevated but not suspecting gallbladder pathology ---- repeated CMP - decreased 3.6 -> 2.8 ->2.2 -Chest/abd xray: unremarkable -HypoK+: replete and monitor ---- trend BMP 05/22 Pt feeling better and tolerating diet. No abd. pain on phys. exam. Total Time Total Time Spent Total Time Spent (In Minutes): 35 Discharge Plan Discharge Items Patient Disposition: Home - Self-Care Reason For Visit: NAUSEA AND VOMITING Discharge Diagnosis: Cannabis hyperemesis syndrome Condition on Discharge: Fair Activity: Per Instructions section Non-emergency contact: Primary Care Provider Call non-emergency contact if: you have any medication questions and your symptoms worsen Follow-up/Referrals: PCP,NO [Primary Care Provider] - Diet: Regular Addtl Attending Provider Instructions: Follow up with primary care physician within 1 week. You can use [employer]. Recommend to completely abstain from cannabis (marijuana) use. Recommend to stay well hydrated. You were also started on medication - pantoprazole - take it daily as prescribed and discuss further with your family physician. Pending Studies at Discharge: No Stand-Alone Forms: My [facility], Smoking Cessation Medications and DC Order Prescriptions: New pantoprazole 40 mg tablet,delayed release (DR/EC) 40 mg PO DAILY Qty: 30 0RF Continued ondansetron HCl 4 mg tablet 4 mg PO Q8 PRN (Reason: nausea & vomiting) acetaminophen [Tylenol Extra Strength] 500 mg Tablet 1,000 mg PO QID PRN (Reason: Pain) cholecalciferol (vitamin D3) [Vitamin D3] 25 mcg (1,000 unit) Tablet 25 mcg PO [id number] Discharge Orders: Discharge Order (Routine); Ordered 05/22/22 Ordered By: Rolo Muir Admission Data Admit Date/Time: 05/20/22 19:20 Attending Provider: Rolo Muir Admit Provider: Miguel Rosales Primary Care Provider: PCP,NO Other Providers: Miguel Rosales
== END 2022-05-22 16:22 | disposition home or self-care (01) ==
LOC: ED 14:57 → 3N 14:57 → SUATTDRO 19:20 → 3N 21:15